=== PATIENT | female | born 1960 | race African-American/Black ===

== ENCOUNTER 2018-01-05 03:01 | Observation (INO) | payer MEDICAID ==
[~2018-01-05] VITALS: Ht 162.6 cm; Wt 62.4 kg
[2018-01-05] VITALS (9 sets, daily range): BP systolic 95–159; BP diastolic 63–86; Ht 162.6 cm; Wt 62.4 kg
--- NOTE | ~2018-01-05 | HEMODYNAMI ---
PATIENT:LONDON VICENTE MEDICAL RECORD: [id number] : 60 LOCATION:[address] ADMISSION DATE: 01/05/18 Generatedon:01/06/201810:10 Patient name: LONDON VICENTE Patient #: [id number] SSN: DO B: 1960 Date of study: 01/06/2018 Page: Of Hemodynamic Procedure Report Patient Data Patient Demographics Procedure consent was obtained First Name: LONDON Gender: Female Last Name: JULES : 1960 Patient #: [id number] Age: 57 year(s) Race: Black Additional ID: [id number] Contact details Address: [address] [place] [address] [address] State: [place] City: [place] Zip code: [address] Past Medical History Allergies: No known allergies Admission Admission Data Admission Date: 01/05/2018 Admission Time: 5:05 Room #: 2107 Lab Results Lab Result Date: 01/05/2018 Lab Result Time: 0:00 Biochemistry Name Units Result Min Max BUN mg/dl 16 --(---*)-- 7 18 Creatinine mg/dl 0.8 --(-*--)-- 0.6 1.3 CBC Name Units Result Min Max Hemoglobin g/dl 13.8 --(*---)-- 13.5 17.5 Procedure Procedure Types Cath Procedure Diagnostic Procedure Cardioversion External Procedure Description Procedure Date Procedure Date: 01/06/2018 Procedure Start Time: 9:45 Procedure End Time: 10:10 Procedure Staff Name Function Juan Childs MD Performing Physician Ariel Eid RT Monitor Ralph Sandesr RN Nurse Procedure Medications Medication Administration Route Dosage Oxygen etCO2 Nasal cannula 2 l/min 0.9% NaCl I.V. 100 ml/hr Versed I.V. 2 mg Fentanyl I.V. 50 mcg Versed I.V. 1 mg Hemodynamics Rest HGB: 13.8 (g/dl) Heart Rate: 106 (bpm) Snapshots Pre Cath Intra NCS Post Cath Vital Signs Time Heart Resp SPO2 etCO2 NIBP (mmHg) Rhythm Pain Sedation Rate (ipm) (%) (mmHg) Status Level (bpm) 9:39:49 101 17 99 0 157/121(140) NSR 0 (11) 10(A) , No pain 9:44:28 105 16 100 25.5 133/77(127) NSR 0 (11) 10(A) , No pain 9:49:13 73 16 98 12 138/82(120) NSR 0 (11) 9(A) , No pain 9:53:51 69 16 100 28.6 118/73(104) NSR 0 (11) 9(A) , No pain 9:58:26 69 12 100 24 118/76(101) NSR 0 (11) 9(A) , No pain 10:03:00 67 10 100 24 120/69(92) NSR 0 (11) 9(A) , No pain 10:07:40 24.8 116/67(92) NSR 0 (11) 9(A) , No pain Medications Time Medication Route Dose Verified Delivered Reason Notes Effectiven ess by by 9:41:52 Oxygen etCO2 2 Juan Ralph Per Nasal l/min Kel Sanders RN physician cannula 9:42:01 0.9% NaCl I.V. 100 Juan Ralph Per ml/hr Kel Sanders RN physician 9:45:54 Versed I.V. 2 mg Juan Ralph for Kel Sanders RN sedation 9:46:01 Fentanyl I.V. 50 Juan Ralph for mcg Kel Sanders RN sedation 9:47:59 Versed I.V. 1 mg Juan Ralph for Kel Sanders RN sedation Procedure Log Time Note 9:23:28 Diagnostic Cath Status : Elective 9:23:58 Ariel Eid RT(R) (CV) sent for patient. Start room use. 9:24:00 Time tracking: Regular hours (M-F 7:00 - 5:00) 9:24:05 Plan of Care:Hemodynamics will remain stable., Cardiac rhythm will remain stable., Comfort level will be maintained., Respiratory function will remain adequate., Patient/ family verbilizes understanding of procedure., Procedure tolerated without complication., Recovers from procedure without complications.. 9:37:44 Patient received from PCU to CCL 1 Alert and oriented. Tansferred to table in Supine position. 9:37:46 Warm blankets applied, and kane hugger turned on for patient comfort. 9:37:47 Correct patient and procedure confirmed by team. 9:37:50 Signed procedure consent form obtained from patient. 9:38:57 ECG and BP/O2 sat monitors applied to patient. 9:38:58 Vital chart was started 9:38:59 Baseline sample Acquired. 9:39:22 Rhythm: atrial flutter 9:39:25 Full Disclosure recording started 9:39:30 Pre-procedure instructions explained to patient. 9:39:32 Pre-op teaching completed and patient verbalized understanding. 9:39:34 Family unavailable. 9:39:44 Patient allergic to No known allergies 9:40:00 ------Cardioversion------ 9:40:01 Quick combo pads placed on patients chest and back. 9:41:45 Snore? Yes 9:41:47 Sleep apnea? No 9:41:50 Deviated septum? No 9:41:51 Opens mouth fully? Yes 9:41:52 Oxygen 2 l/min etCO2 Nasal cannula was administered by Ralph Sanders RN; Per physician; 9:41:52 Sticks out tongue? Yes 9:41:55 Airway obstruction? No ? 9:41:59 Dentures? No ? 9:42:01 0.9% NaCl 100 ml/hr I.V. was administered by Ralph Sanders RN; Per physician; 9:43:21 Patient arrived on AMIODERONE at 16.7ML/HR ml/hr IV drip right wrist 9:44:[address] CHILDS 9:44:18 Alarms reviewed by RBe Castro. 9:44:21 Physician arrived 9:44:21 --------ALL STOP TIME OUT------ 9:44:22 Final Timeout: patient, procedure, and site verified with staff and physician. All members of the team are in agreement. 9:44:26 Mid Chest site verified by team. 9:44:30 Physical assessment completed. ASA score P 2 - A patient with mild systemic disease as per Juan Childs MD. 9:44:36 Sedation plan: IV Moderate Sedation Medication:Versed, Fentanyl 9:45:36 Procedure started. 9:45:54 Versed 2 mg I.V. was administered by Ralph Sanders RN; for sedation; 9:46:01 Fentanyl 50 mcg I.V. was administered by Ralph Sanders RN; for sedation; 9:47:59 Versed 1 mg I.V. was administered by Ralph Sanders RN; for sedation; 9:48:46 Defibrillator synced and charged to 200 Joules. 9:48:48 Shock delivered. 9:49:07 Patient cardioverted to sinus rhythm . 9:51:16 Procedure ended.(Physican Out) 9:52:16 Baseline sample Acquired. 9:56:21 Post-procedure physical assessment completed. ASA score P 2 - A patient with mild systemic disease as per Juan Childs MD. 9:56:28 Post procedure rhythm: sinus rhythm 10:09:46 Patient needs reinforcement of post procedure teaching. 10:09:49 Report given to Pre/Post Procedure Room. 10:09:53 Patient transfered to Pre/Post Procedure Room with Stretcher. 10:10:03 Procedure ended. 10:10:03 Full Disclosure recording stopped 10:10:07 End room use (Document Last) 10:10:38 Vital chart was stopped Signature Audit [place] Stage Time Signature Unsigned Intra-Procedure 01/06/2018 Ariel Eid 10:10:36 AM RT(R) (CV) Signatures Monitor : Ariel Eid RT Signature : Date : Time : [place] [address] [place] [address]
--- NOTE | ~2018-01-05 | OP ---
PATIENT NAME: LONDON VICENTE MEDICAL RECORD: [id number] :60 [facility] ADMISSION DATE:01/05/18 SURGEON: EDWARDO CHILDS MD PROCEDURES: Left heart catheterization Left ventricular gram Coronary angiogram INDICATION: Ventricular tachycardia Cardia myopathy Elevated troponin PROCEDURE: Patient brought to cardiac catheterization lab in stable condition right groin sterilely prepped and draped patient had a 5 Dominican sheath placed in right common femoral artery using modified Seldinger technique and a retrograde fashion We then selectively engage the left coronary artery the right coronary artery and the left trigger cavity FINDINGS: Left main very large vessel normal LAD large vessel mild plaquing Circumflex dominant vessel very large mild plaquing RCA nondominant normal Hemodynamics Dilated left ventricular cavity Global hypokinesis Ejection fraction 20/25 percent No significant mitral regurgitation There was no significant gradient across the bioprosthetic valve upon direct pullback SELECTIVE CORONARY ANGIOGRAPHY: Left, right, LV cavity INTERVENTION: None OVERALL IMPRESSION Mild coronary artery disease Nonischemic Cardia myopathy Dilated cardiomyopathy Maximize medical management Spoke to the patient about a defibrillator at this point in time she wants to speak to her primary social services analyst as an outpatient in regards to a defibrillator She does not want LifeVest either at this point OPERATIVE REPORT [id number] JULESEDWARDO WEBER MD at 0956 CC: [id number] DICTATION DATE: 01/05/18 1053 MANAGER OF SALES: DM 01/06/18 1009 DIS IN 01/06/18 [facility] [address] [place] [address]
--- NOTE | ~2018-01-05 | EC ---
PATIENT:LONDON VICENTE DATE OF SERVICE: 01/05/18 SEX: F MEDICAL RECORD: [id number] DATE OF : 60 [facility] AGE OF PATIENT: 57 ADMISSION DATE: 01/05/18 REFERRING PHYSICIAN: INTERPRETING PHYSICIAN: EDWARDO CHILDS MD ECHOCARDIOGRAM REPORT ECHO CHARGES Date: CLINICAL DIAGNOSIS: ECHOCARDIOGRAPHIC MEASUREMENTS (adult normal given) AC root (d.<3.7cm) cm LV Septum d (<1.2 cm> cm Valve Excursion cm LV Septum (systole) cm Left Atria (s.<4.0cm> cm LVPW d(<1.2cm) cm RV (d.<2.3cm) cm LVPW (sytole) cm LV diastole(<5.6CM) cm MV E-F(>70mm/sec) cm LV systole cm LVOT Diameter cm MV exc.(>10mm) cm Est.ejection fraction (50-75%) % DOPPLER: LVIT cm/sec A cm/sec E cm/sec LA cm/sec RVSP mmHg LVOT cm/sec AOP1/2T m/s Asc. Ao cm/sec RVOT cm/sec RA cm/sec PA cm/sec AV Gradient Peak mmHg AV Mean mmHg AV Area cm MV Gradient Peak mmHg MV Mean mmHg MV Area cm COMMENTS: Hotel Desk Clerk: Film And Video Graphics Designer: KAL# Pericardial Effusion DATE OF SERVICE: PROCEDURE: Transthoracic echocardiogram. FINDINGS: 1. Technically difficult study. There is global hypokinesis. Left ventricle is dilated. There is asynchronous wall motion secondary to bundle branch block. The overall ejection fraction is 20% to 25%. 2. The right ventricle is moderately dilated. 3. Left atrium is mildly dilated at 4.4 cm. ECHOCARDIOGRAM REPORT [id number] LONDON VICENTE 4. The aortic valve is normal. 5. The mitral valve has mild mitral regurgitation. 6. Tricuspid valve has mild tricuspid regurgitation. RVSP is 29 mmHg. 7. The right atrium is mildly dilated. 8. The pulmonic valve is not well visualized. 9. There is no significant pericardial effusion. CONCLUSIONS: The patient has a dilated cardiomyopathy that is moderate to severe. Ejection fraction is 20% to 25%. Also, evidence of moderate left ventricular hypertrophy consistent with hypertensive heart disease and also near-restrictive inflow characteristics. TRANSINT:[id number] Voice Confirmation ID: [id number] DOCUMENT ID: [id number] EDWARDO CHILDS MD at 0956 CC: [id number] DICTATION DATE: 01/06/18904 HAND CUTTER APPRENTICE: 01/06/18 1150 DIS IN 01/06/18 [facility] [address] [place] [address]
--- NOTE | ~2018-01-05 | HEMODYNAMI ---
PATIENT:LONDON VICENTE MEDICAL RECORD: [id number] : 60 LOCATION:[facility]# [id number] ADMISSION DATE: 01/05/18 Generatedon:01/05/201810:52 Patient name: LONDON VICENTE Patient #: [id number] SSN: DO B: 1960 Date of study: 01/05/2018 Page: Of Hemodynamic Procedure Report Patient Data Patient Demographics Procedure consent was obtained First Name: LONDON Gender: Female Last Name: JULES : 1960 Patient #: [id number] Age: 57 year(s) Race: Black Additional ID: [id number] Contact details Address: [address] [place] [address] [address] State: [place] City: [place] Zip code: [address] Past Medical History Allergies: No known allergies Admission Admission Data Admission Date: 01/05/2018 Admission Time: 5:05 Room #: D.E01 Lab Results Lab Result Date: 01/05/2018 Lab Result Time: 0:00 Biochemistry Name Units Result Min Max BUN mg/dl 16 --(---*)-- 7 18 Creatinine mg/dl 0.8 --(-*--)-- 0.6 1.3 CBC Name Units Result Min Max Hemoglobin g/dl 13.8 --(*---)-- 13.5 17.5 Procedure Procedure Types Cath Procedure Diagnostic Procedure [facility] w/Coronaries Sedation Charges Moderate Sedation up to 15 minutes Procedure Description Procedure Date Procedure Date: 01/05/2018 Procedure Start Time: 10:27 Procedure End Time: 10:51 Procedure Staff Name Function Juan Begum MD Performing Physician Sandra Ludwig RT Monitor Jesus Em RN Nurse Batool Monk RT Scrub Ralph Sanders RN Ios Architect Procedure Data Cath Procedure Fluoroscopy Diagnostic fluoroscopy Total fluoroscopy Time: 6.9 time: 6.9 min min Diagnostic fluoroscopy Total fluoroscopy dose: 310 dose: 310 mGy mGy Contrast Material Contrast Material Type Amount (ml) Isovue 300 36 Entry Location Entry Primary Successful Side Size Upsize Upsize Entry Closure Succes sful Closure Location (Fr) 1 (Fr) 2 (Fr) Remarks Device Remarks Femoral Right 5 Fr Exoseal artery Estimated blood loss: 5 ml Diagnostic catheters Device Type Used For End Catheter Placement MULTIPACK JL 4.0 5Fr Procedure catheter MULTIPACK 3DRC 5Fr Procedure catheter MULTIPACK Pigtail 5 Fr Procedure catheter DIAGNOSTIC AL 1 5Fr Procedure catheter ([id number]) MULTIPACK Pigtail 5 Fr Procedure catheter Procedure Complications No complications Procedure Medications Medication Administration Route Dosage 0.9% NaCl I.V. 100 ml/hr Oxygen etCO2 Nasal cannula 2 l/min Heparin Flush Bag added to field 2 bags (1000units/500ml NS) Lidocaine 2% added to field 20 unlisted medication I.V. 0.5 mg/min Versed I.V. 1 mg Fentanyl I.V. 50 mcg Hemodynamics Rest HGB: 13.8 (g/dl) Heart Rate: 102 (bpm) Pressure Samples Time Site Value (mmHg) Purpose Heart Use Rate(bpm) 10:43 LV 118/5,15 EDP 98 10:46 AO 119/70(91) Pullback 99 10:46 LV 120/-1,12 Pullback 99 Gradients Valve Time Site 1 Site 2 Mean SEP/DFP Peak To Heart Use (mmHg) (sec/min) Peak Rate (mmHg) (bpm) Aortic 10:46 LV AO 24 17 1 99 120/-1,12 119/70(91) Calculations Valve P-P Mean Valve Index Valve Source Name Gradient Area Flow (cm2) Aortic 1 24 1 24 Snapshots Pre Cath Intra NCS Post Cath Vital Signs Time Heart Resp SPO2 etCO2 NIBP (mmHg) Rhythm Pain Sedation Rate (ipm) (%) (mmHg) Status Level (bpm) 10:15:06 102 15 100 22.6 121/84(110) NSR 0 (11) 10(A) , No pain 10:19:40 101 16 100 28.6 109/79(92) NSR 0 (11) 10(A) , No pain 10:24:10 100 14 98 27.1 108/85(98) NSR 0 (11) 10(A) , No pain 10:28:43 100 12 98 12 115/80(90) NSR 0 (11) 10(A) , No pain 10:33:15 100 13 99 20.3 115/79(93) NSR 0 (11) 9(A) , No pain 10:37:47 97 14 100 26.3 102/73(92) NSR 0 (11) 9(A) , No pain 10:42:16 98 14 100 28.6 110/76(97) NSR 0 (11) 9(A) , No pain 10:46:46 99 13 100 26.3 114/78(96) NSR 0 (11) 9(A) , No pain 10:51:17 100 14 100 29.4 111/81(97) NSR 0 (11) 9(A) , No pain Medications Time Medication Route Dose Verified Delivered Reason Notes Ef fectiveness by by 10:16:39 0.9% NaCl I.V. 100 Jesus Jesus Per ml/hr Lorigan Lorigan physician RN RN 10:16:49 Oxygen etCO2 2 Jesus Jesus Per Nasal l/min Lorigan Lorigan physician cannula RN RN 10:17:04 Heparin Flush added 2 bags Jesus Jesus used for Bag to Lorigan Lorigan procedure (1000units/500ml field RN RN NS) 10:17:15 Lidocaine 2% added 20ml Jesus Jesus for local to vial Lorigan Lorigan anesthetic field RN RN 10:19:54 Amiodarone I.V. 0.5 Jesus Jesus for (360mg\200 ml) mg/min Lorigan Lorigan arrhythmia RN RN 10:25:37 Versed I.V. 1 mg Jesus Jesus for Lorigan Lorigan sedation RN RN 10:25:45 Fentanyl I.V. 50 mcg Jesus Jesus for Lorigan Lorigan sedation RN straight edger Log Time Note 9:59:11 Ralph Sanders RN sent for patient. Start room use. 9:59:12 Time tracking: Regular hours (M-F 7:00 - 5:00) 9:59:16 Plan of Care:Hemodynamics will remain stable., Cardiac rhythm will remain stable., Comfort level will be maintained., Respiratory function will remain adequate., Patient/ family verbilizes understanding of procedure., Procedure tolerated without complication., Recovers from procedure without complications.. 10:03:28 H&P Date Dictated: 01/05/2018 ER History on chart.. 10:03:37 Patient allergic to No known allergies 10:04:01 Lab Result : BUN 16 mg/dl 10:04: Lab Result : Creatinine 0.8 mg/dl 10:04: Lab Result : Hemoglobin 13.8 g/dl 10:09:12 Patient received from ED to CCL 1 Alert and oriented. Tansferred to table in Supine position. 10:09:13 Warm blankets applied, and kane hugger turned on for patient comfort. 10::13 Correct patient and procedure confirmed by team. 10::15 Signed procedure consent form obtained from patient. 10::16 ECG and BP/O2 sat monitors applied to patient. 10:14:22 Vital chart was started 10:16:39 0.9% NaCl 100 ml/hr I.V. was administered by Jesus Em RN; Per physician; 10:16:49 Oxygen 2 l/min etCO2 Nasal cannula was administered by Jesus Em RN; Per physician; 10:17:04 Heparin Flush Bag (1000units/500ml NS) 2 bags added to field was administered by Jesus Em RN; used for procedure; 10:17:15 Lidocaine 2% 20ml vial added to field was administered by Jesus Em RN; for local anesthetic; 10:18:19 Baseline sample Acquired. 10:19:54 Amiodarone (360mg\200 ml) 0.5 mg/min I.V. was administered by Jesus Em RN; for arrhythmia; 10:23:04 Rhythm: sinus tachycardia 10:23:05 Full Disclosure recording started 10:23:06 Pre-procedure instructions explained to patient. 10:23:06 Pre-op teaching completed and patient verbalized understanding. 10:23:11 Family unavailable. 10:23:14 Patient NPO since Midnight. 10:23:17 Is the patient allergic to Iodine/contrast media? No. 10:23:19 Is patient on blood thinner?Yes 10:23:24 PRELOADED 10:23:26 Patient diabetic? Yes. 10:23:28 If diabetic: On Metformin? No 10:23:31 Patient not . Patient has had tubal. 10:23:35 Previous problem with sedation/anesthesia? No ? 10:23:42 Snore? Yes 10:23:43 Sleep apnea? No 10:23:45 Deviated septum? No 10:23:46 Opens mouth fully? Yes 10:23:48 Sticks out tongue? Yes 10:24:00 Airway obstruction? Yes PREVIOUS DOUBLE PNEUMONIA 10:24:03 Dentures? No ? 10:24:05 Pre procedure: right dorsailis pedis pulse 2+ Normal; easily identifiable; not easily obliterated 10:24:14 Patient pain scale 0/10 ?. 10:24:20 IV patent on arrival in left forearm with 0.9% NaCl at [facility]. 10:24:23 Lab results completed and on chart. 10:24:26 Right groin area was prepped with chlora-prep and draped in sterile fashion 10::27 Alarms reviewed by R. N. 10::27 Sharps counted by scrub and verified by R.N. 10::29 --------ALL STOP TIME OUT------ 10::29 Final Timeout: patient, procedure, and site verified with staff and physician. All members of the team are in agreement. 10:24:30 Right groin site verified by team. 10:24:35 Physical assessment completed. ASA score P 2 - A patient with mild systemic disease as per Juan Begum MD. 10:24:45 Sedation plan: IV Moderate Sedation Medication:Versed, Fentanyl 10:24:47 Use device set Femoral Dx 10:24:48 ACIST Syringe (45021) opened to sterile field. 10:24:49 Bag Decanter (2002) opened to sterile field. 10:24:51 ACIST Manifold (77009) opened to sterile field. 10:24:51 ACIST Hand Control (84049) opened to sterile field. 10:24:52 Tegaderm 4 x 4 (1626W) opened to sterile field. 10:24:55 Medline Cath Pack ([id number]) opened to sterile field. 10:24:56 DIAGNOSTIC WIRE .035 260cm J wire (049856) opened to sterile field. 10:25:00 DIAGNOSTIC Multipack 5Fr catheter set ([id number]) opened to sterile field. 10:25:01 MICROPUNCTURE 4FR Cook ([id number]) opened to sterile field. 10:25:03 SHEATH Prelude 5Fr 0.035 ([id number]-5N-[id number]) opened to sterile field. 10:25:37 Versed 1 mg I.V. was administered by Jesus Em RN; for sedation; 10::45 Fentanyl 50 mcg I.V. was administered by Jesus Em RN; for sedation; 10::37 Procedure started. 10::55 Local anesthetic to right femoral artery with Lidocaine 2% by Juan Begum MD.INITIAL ACCESS ONLY 10:29:16 Zero performed for pressure channel P1 10::32 Zero performed for pressure channel P1 10:31:02 Access obtained with 4Fr micropunture. 10:31:24 A 5 Fr sheath was inserted into the Right Femoral artery 10:32:18 A MULTIPACK JL 4.0 5Fr catheter was advanced over the wire and used for Procedure. 10:33:59 LCA angiography performed. 10:34:40 Catheter exchanged over wire. 10:35:07 A MULTIPACK 3DRC 5Fr catheter was advanced over the wire and used for Procedure. 10:36:03 RCA angiography performed. 10:36:14 Catheter exchanged over wire. 10:37:14 A MULTIPACK Pigtail 5 Fr catheter was advanced over the wire and used for Procedure. 10:38:36 GLIDE WIRE ANGLE 260cm (SI1536) opened to sterile field. 10:40:32 Catheter exchanged over wire. 10:40:54 UNABLE TO CROSS VALVE. WILL GET AL AND ROADRUNNER 10:42:40 A DIAGNOSTIC AL 1 5Fr catheter ([id number]) was advanced over the wire and used for Procedure. 10:43:02 RO[address] RUNNER ADVANCED 10:43:26 LV hemodynamics recorded. 10:43:44 AL EXCHANGED FOR PIGTAIL 10:44:02 A MULTIPACK Pigtail 5 Fr catheter was advanced over the wire and used for Procedure. 10:45:12 LV gram done using LOVING 10:45:36 EF : 25 % 10:45:40 Catheter removed. 10:45:52 EXOSEAL 5Fr (EX500) opened to sterile field. 10:46:46 Sheath removed intact; hemostasis achieved with Exoseal to the Right Femoral artery. 10:47:04 Procedure ended.(Physican Out) 10:47:32 Fluoroscopy time 06.90 minutes. 10:47:36 Flurop Dose total: 310 10:47:36 Fluoroscopy dose: 310 mGy 10:47:40 Contrast amount:Isovue 300 36ml. 10:47:55 Sharps counted by scrub and verified by R.N. 10:47:59 Post-op/insertion site Right Femoral artery dressed using a 4 x 4 and Tegaderm. 10:48:05 Post right femoral artery:stable, soft, clean and dry 10:48:37 Post procedure: right dorsailis pedis pulse 2+ Normal; easily identifiable; not easily obliterated. 10:48:40 Post-procedure physical assessment completed. ASA score P 2 - A patient with mild systemic disease as per Juan Begum MD. 10:48:43 Post procedure rhythm: unchanged. 10:48:47 Estimated blood loss: 5 ml 10:48:49 Post procedure instruction explained to patient.Patient verbalizes understanding. 10:48:49 Patient needs reinforcement of post procedure teaching. 10:49:17 Procedure type changed to Cath procedure, Diagnostic procedure, LHC, LHC w/Coronaries, Sedation Charges, Moderate Sedation up to 15 minutes 10:50:20 Procedure and supply charges have been captured, reviewed, submitted and are correct. 10:50:23 Procedure Complication : No complications 10:51:26 Vital chart was stopped 10:51:27 See physician's report for complete and final results. 10:51:31 Report given to PCU. 10:51:34 Patient transfered to PCU with Bed. 10:51:48 Procedure ended. 10:51:48 Full Disclosure recording stopped 10:51:53 End room use (Document Last) Device Usage Item Name Manufacture Quantity Catalog Number Hospital Part Current M inimal Lot# / Charge Number Stock Stock Serial# Code ACIST Syringe Acist 1 63748 147319 383418 415222 2 0 (25924) [employer] Bag Decanter Microtek 1 2001S 151947 71037 458357 5 () Medical Inc. ACIST Manifold Acist 1 87787 820593 992200 145722 5 (88319) [employer] ACIST Hand Acist 1 21193 456992 268238 120645 5 Control (91105) [employer] Tegaderm 4 x 4 3M 1 1626W 105868 816576 765578 5 (1626W) Medline Cath Cardinal 1 [id number] 135076 07406 635805 5 [facility] ([id number]) DIAGNOSTIC WIRE [facility] 1 [id number] 023839 554341 381744 3 0 .035 260cm J wire (174979) DIAGNOSTIC Cardinal 1 [id number] 540946 56242 796476 3 0 Multipack 5Fr Health catheter set ([id number]) MICROPUNCTURE Cook Medical 1 Q22057 968860 895962 223404 5 4FR Cook ([id number]) SHEATH Prelude Merit 1 [id number] 279084 459480 843577 5 5Fr 0.035 Medical ([id number]-2T-73-035) MULTIPACK JL Cardinal 1 [id number] 5 4.0 5Fr Health catheter MULTIPACK 3DRC Cardinal 1 155988 5 5Fr catheter Health MULTIPACK Cardinal 1 874704 5 Pigtail 5 Fr Health catheter GLIDE WIRE Terumo 1 [id number] 666847 176176 139568 5 ANGLE 260cm (AA8619) DIAGNOSTIC AL 1 Cardinal 1 [id number] 394684 532845 672974 1 5 5Fr catheter Health (166062F) EXOSEAL 5Fr Cardinal 1 EX500 025517 175868 152162 1 0 (EX500) Health Signature Audit [place] Stage Time Signature Unsigned Intra-Procedure 01/05/2018 Sandra Ludwig 10:52:18 AM RT(R) Signatures Monitor : Sandra Ludwig Signature : RT Date : Time : [address] [address]
[2018-01-05] MEDS ORDERED: ASPIRIN325 MG PO (03:09)
[2018-01-05] MEDS ORDERED: LANTUS INSULIN10 ML SC (03:10)
[2018-01-05] MEDS ORDERED: COZAAR25 MG PO (03:10)
[2018-01-05] MEDS ORDERED: ZOCOR20 MG PO (03:11)
[2018-01-05] MEDS ORDERED: GLUCOPHAGE1000 MG PO (03:11)
[2018-01-05 04:49] LABS: TROPONIN-I 1.632 ng/mL (0.000-0.060)
[2018-01-05 08:32] LABS: BASOPHILS 0.2 % (0-2); HEMATOCRIT 41.1 % (36.0-48.0); HEMOGLOBIN 13.8 g/dL (12-16); IMMATURE GRANULOCYTES 0.2 % (0-5); LYMPHOCYTES 34.5 % (15-50); MCHC 33.6 g/dL (31.0-37.0); MCV 83.5 fL (80.0-100.0); MEAN PLATELET VOLUME 10.4 fL (7.4-10.4); MONOCYTES 6.2 % (2-11); NEUTROPHILS 57.9 % (40-80); PLATELET COUNT 324 10x3/uL (130-400); RBC 4.92 10x6/uL (4.00-5.40); RDW 14.5 % (11.5-14.5); WBC 12.5 10x3/uL (4.8-10.8)
[2018-01-05 09:17] LABS: CALC OSMOLALITY 282 mosm/kg (275-300); CALCIUM 8.6 mg/dL (8.5-10.1); CARBON DIOXIDE 25.4 mmol/L (21.0-32.0); CHLORIDE - SERUM 106 mmol/L (98-107); CKMB 7.4 U/L (0.0-3.6); CREATINE KINASE 136 UL (21-215); CREATININE - SERUM 0.8 mg/dL (0.6-1.3); GLUCOSE 116 mg/dL (74-106); POTASSIUM - SERUM 3.5 mmol/L (3.5-5.1); SODIUM 141 mmol/L (136-145); UREA NITROGEN 16 mg/dL (7-18); eGFR NON AFRICAN AMERICAN 78 mL/min (90-120)
[2018-01-05 09:18] LABS: TROPONIN-I 4.542 ng/mL (0.000-0.060)
[2018-01-06] VITALS: BP 91/64
[2018-01-06 04:00] VITALS: BP 99/69
[2018-01-06 09:54] VITALS: BP 122/65
[2018-01-06] MEDS ORDERED: COREG 3.1253.125 MG PO (10:05)
[2018-01-06] MEDS ORDERED: PACERONE200 MG PO (10:05)
== END 2018-01-06 13:30 | disposition home or self-care (01) ==
LOC: D.ER 03:01 → OBSVTIME 05:05 → D.EDHOLD 05:05 → D.CLR 05:05 → D.EDHOLD 05:05 → D.M2 15:00 → D.CLR 01-06 10:25
PROVIDERS: Emergency Medicine
DX: I21.4 Non-ST elevation (NSTEMI) myocardial infarction (principal); I47.1 Supraventricular tachycardia; I42.0 Dilated cardiomyopathy; I25.10 Atherosclerotic heart disease of native coronary artery without angina pectoris; I48.92 Unspecified atrial flutter; E11.9 Type 2 diabetes mellitus without complications; I10 Essential (primary) hypertension